=== PATIENT | male | born 1980 | race Caucasian/White ===

== ENCOUNTER 2019-02-17 22:13 | Emergency (ER) | payer OTHER ==
[~2019-02-17] VITALS: Ht 185.4 cm; Wt 108.9 kg
== END 2019-02-18 00:26 | disposition home or self-care (01) ==
LOC: ED 22:13
DX: S90.111A Contusion of right great toe without damage to nail, initial encounter (principal); I10 Essential (primary) hypertension; W22.8XXA Striking against or struck by other objects, initial encounter
CPT/HCPCS: 73630; 99283

== ENCOUNTER 2024-08-21 01:38 | Emergency (ER) | payer OTHER ==
[~2024-08-21] VITALS: Ht 185.4 cm; Wt 100.0 kg
[2024-08-21 02:27] LABS: BASOPHILS 0.8 % (0-2); EOSINOPHILS 2.8 % (0-6); HEMATOCRIT 46.6 % (35.0-50.0); HEMOGLOBIN 15.9 g/dL (12.0-18.0); LYMPHOCYTES 17.2 % (24-44); MCH 31.4 (27-36); MCV 92.4 fl (81-99); NEUTROPHILS 67.2 % (39-80); PLATELET COUNT 368 K/uL (140-440); RBC 5.05 M/ul (4.3-5.7); RDW 13.5 (10.5-15.0)
[2024-08-21] MEDS ORDERED: LACTATED RINGER'S 1,000 ML IV ONE (02:30)
[2024-08-21] MEDS ORDERED: ondansetron HCL 4 MG/2 ML VIAL IV ONE (02:30)
[2024-08-21] MEDS ORDERED: DIPHTH,PERTUSS(ACELL),TET VAC 0.5 ML SYRINGE IM ONE (02:30)
[2024-08-21] MEDS ORDERED: MORPHINE SULFATE 4 MG/ML VIAL IV ONE (02:30)
[2024-08-21 02:39] LABS: ALBUMIN/GLOBULIN RATIO 1.18 (1.1-2.4); ALCOHOL, MEDICAL <3 ng/dL (<3); ALKALINE PHOSPHATASE 85 U/L (46-116); ALT (SGPT) 51 U/L (14-59); ANION GAP 14.3 (7-21); AST (SGOT) 21 U/L (15-37); BILIRUBIN, TOTAL 0.9 ng/dL (0.2-1.0); BUN/CREATININE RATIO 15.38 (6.0-28.6); CARBON DIOXIDE 28 mmol/L (21-32); CHLORIDE 105 mmol/L (98-107); GLOMERULAR FILTRATION RATE,EST 70 mL/min (>60); POTASSIUM 4.3 mmol/L (3.5-5.1); PROTEIN, TOTAL 7.4 g/dL (6.4-8.2); UREA NITROGEN 20 mg/dL (7-18)
[2024-08-21 04:04] LABS: ABO A; RH POSITIVE
[2024-08-21 04:07] LABS: ANTIBODY SCREEN NEGATIVE
[2024-08-21] MEDS ORDERED: HYDROCODON-ACE1 EA10 PO (04:49)
[2024-08-21] MEDS ORDERED: HYDROCODONE BIT/ACETAMINOPHEN 5/325 MG 1 TAB HOME.PACK PO ONE (05:00)
[2024-08-21 05:20] VITALS: BP 139/94
== END 2024-08-21 05:20 | disposition home or self-care (01) ==
LOC: ED 01:38
PROVIDERS: Family Medicine
DX: S01.01XA Laceration without foreign body of scalp, initial encounter (principal); S20.211A Contusion of right front wall of thorax, initial encounter; I10 Essential (primary) hypertension; V47.5XXA Car driver injured in collision with fixed or stationary object in traffic accident, initial encounter
CPT/HCPCS: 12002; 36415; 70450; 71260; 72125; 74177; 80053; 80307; 85025; 86850; 86900; 86901; 90471; 90715; 99284-25; A9270; G0480; J2270; J2405; J7121; Q9967